=== PATIENT | female | born 1990 | race Two or more races ===

== ENCOUNTER 2020-02-28 22:08 | Outpatient (CLI) | payer OTHER ==
[~2020-02-28 22:08] MED LIST: IBUPROFEN800 MG PO
== END 2020-02-29 08:20 | disposition home or self-care (01) ==
LOC: OBS/DEL 22:08
PROVIDERS: ATTEND Obstetrics & Gynecology
DX: O26.893 Other specified pregnancy related conditions, third trimester (principal); R10.2 Pelvic and perineal pain

== ENCOUNTER 2020-03-19 08:22 | Inpatient (IN) | payer OTHER ==
[~2020-03-19] VITALS: Ht 165.1 cm; Wt 2.3 kg
[2020-03-19] MEDS ORDERED: PRENATAL TABLE1 EAC1 PO (09:03)
[2020-03-19] MEDS ORDERED: METRONIDAZOLE500 MG PO (09:04)
== END 2020-03-22 19:08 | disposition home or self-care (01) | DRG 785 ==
LOC: LDR 08:22 → OB/GYN 08:22
PROVIDERS: ADMIT Obstetrics & Gynecology; ATTEND Obstetrics & Gynecology
PROC: 0UB70ZZ Excision of Bilateral Fallopian Tubes, Open Approach (ICD-10-PCS; 2020-03-19)
PROC: 4A1HXFZ Monitoring of Products of Conception, Cardiac Rhythm, External Approach (ICD-10-PCS; 2020-03-19)
PROC: 3E033VJ Introduction of Other Hormone into Peripheral Vein, Percutaneous Approach (ICD-10-PCS; 2020-03-19)
PROC: 10D00Z1 Extraction of Products of Conception, Low, Open Approach (ICD-10-PCS; principal; 2020-03-19 07:15)
DX: O82 Encounter for cesarean delivery without indication (principal); O34.211 Maternal care for low transverse scar from previous cesarean delivery; Z37.0 Single live birth; O99.824 Streptococcus B carrier state complicating childbirth; Z3A.37 37 weeks gestation of pregnancy; Z30.2 Encounter for sterilization